=== PATIENT | female | born 1930 | race African-American/Black ===

== ENCOUNTER 2018-10-11 10:19 | Day surgery (SDC) | payer OTHER ==
[2018-10-11] VITALS (7 sets, daily range): BP systolic 165–185; BP diastolic 76–84
[~2018-10-11] VITALS: Ht 154.9 cm; Wt 77.1 kg
[~2018-10-11 10:19] MED LIST: BENAZEPRIL HCL40 MG ORAL; MEVACOR40 MG PO; NORMODYNE100 MG ORAL; VITAMIN D32000 UNI2 PO
[2018-10-11] MEDS: Phenylephrine 2.5% Op 2ml Soln LEFT EYE SCH ×3 (10:59→11:29)
[2018-10-11] MEDS: Cyclopentolate 1% Opth Sol 2ml LEFT EYE SCH ×3 (10:59→11:29)
--- NOTE | 2018-10-11 11:07 | NUR ---
IV WAS INSERTED BY GENARO ADHIKARI R.N. AT 1100 AM
[2018-10-11] MEDS ORDERED: CALCIUM500 M3 PO (11:23)
[2018-10-11] MEDS ORDERED: Lidocaine 2% MPF 5ml Vial INJ ONE (11:52)
[2018-10-11] MEDS ORDERED: EPINEPHrine 1mg/1ml Amp ONE (11:52)
[2018-10-11] MEDS ORDERED: Maxitrol Opth Oint 3.5gm ONE (11:52)
[2018-10-11] MEDS ORDERED: Tetracaine 0.5% Opth 4ml Soln ONE ×2 (11:53→13:40)
[2018-10-11] MEDS ORDERED: BSS 500ml btl ONE (11:53)
[2018-10-11] MEDS ORDERED: Povidone-Iodine 5% opth solution ONE (11:53)
[2018-10-11] MEDS ORDERED: BSS 15ml BTL ONE (11:53)
[2018-10-11] MEDS ORDERED: Bupivacaine 0.75% 30ml vial INJ ONE (11:54)
[2018-10-11] MEDS ORDERED: Sodium Hyaluronate 10 mg/ml 0.85ml ONE (11:54)
[2018-10-11] MEDS ORDERED: Kenalog-40 1ml Vial ONE (11:55)
[2018-10-11] MEDS ORDERED: Pred Forte 1% Opth Susp 1ml ONE (11:55)
[2018-10-11] MEDS ORDERED: Dexamethasone 4mg/ml vial ONE (11:55)
--- NOTE | 2018-10-11 13:16 | Anethesia Preoperative Eval ---
Anesthesia Pre-op PMH/ROS General Date of Evaluation: Oct 11, 2018 Time of Evaluation: 13:14 Anesthesiologist: Jennifer Bazzi CRNA ASA Score: ASA 3 Mallampati Score Class I : Soft palate, uvula, fauces, pillars visible Class II: Soft palate, uvula, fauces visible Class III: Soft palate, base of uvula visible Class IV: Only hard plate visible Mallampati Classification: Class II Surgeon: Clive Diagnosis: VItreous hemorrhage Surgical Procedure: Par plana vitrectomy, endolaser, LEFT eye, possible gas injection Anesthesia History: none Family History: no anesthesia problems Allergies: Coded Allergies: No Known Allergies (Verified Allergy, Mild, 11/09/09) Medications: see eMAR Patient NPO?: Yes NPO Date: Oct 11, 2018 NPO Time: 00:00 Past Medical History Cardiovascular: Reports: HTN, other - Hypercholesterolemia; Denies: CAD, MA, valve dz, arrhythmia Pulmonary: Denies: asthma, COPD, CHINO, other Gastrointestinal/Genitourinary: Reports: GERD, other - colon CA; Denies: CRI, ESRD Neurologic/Psychiatric: Denies: dementia, CVA, depression/anxiety, TIA, other Endocrine: Denies: DM, hypothyroidism, steroids, other HEENT: Reports: cataract (L), cataract (R); Denies: glaucoma, ENTERPRISE (L), ENTERPRISE (R), other Hematology/Immune: Denies: anemia, DVT, bleeding disorder, other Musculoskeletal/Integumentary: Reports: OA; Denies: RA, DJD, DDD, edema, other PMH Narrative: as above PSxH Narrative: rt eye cataract, cholecystectomt, hemicolectomy, hysterectomy Anesthesia Pre-op Phys. Exam Physician Exam Last Vital Signs Date Time Temp Pulse Resp B/P (MAP) Pulse Ox O2 Delivery O2 Flow Rate FiO2 10/11/18 11:23 Room Air 10/11/18 11:08 98.1 76 18 175/77 100 Constitutional: NAD Neurologic: CN 2-12 intact Cardiovascular: RRR Respiratory: CTA Gastrointestinal: S/NT/ND Airway Exam Mallampati Score: Class II MO: full Neck: no issues TMD: > 3 FB ROM: full Teeth: missing Dentures: upper Anesthesia Pre-op A/P Risk Assessment & Plan Assessment: ASA 3, ok to proceed Plan: MAC Status Change Before Surgery: No Pre-Antibiotics Given Within 1 Hr of Incision: No Jennifer Bazzi CRNA Oct 11, 2018 13:16
[2018-10-11] MEDS ORDERED: Propofol 200mg/20ml IV ONE (13:22)
[2018-10-11] MEDS ORDERED: DiphenhydrAMINE 50mg/ml Inj ONE (13:22)
[2018-10-11] MEDS ORDERED: Maxitrol Opth Susp 5ml ONE (13:26)
[2018-10-11] MEDS ORDERED: Goniotaire 2.5% Opth Soln - 15ml ONE (13:39)
[2018-10-11] MEDS ORDERED: fentaNYL 100 mcg/2 mL IV ONE (13:55)
[2018-10-11] MEDS ORDERED: Midazolam 2mg/2ml Inj ONE (13:55)
[2018-10-11] MEDS ORDERED: Akten 3.5% 1ml Btl ONE (13:57)
[2018-10-11] MEDS ORDERED: Lidocaine 1% MPF 10mg/ml 5ml ONE (14:00)
[2018-10-11] MEDS ORDERED: Sterile Water Irrig 1000ml IRRIG ONE (14:00)
[2018-10-11] MEDS ORDERED: NS Irrig 1000ml ONE (14:00)
[2018-10-11] MEDS ORDERED: LR 1000ml ONE (14:00)
[2018-10-11] MEDS ORDERED: Esmolol 100mg/10ml Inj ONE (14:00)
--- NOTE | 2018-10-11 14:41 | Pre-Procedure Note/Attestation ---
Pre-Procedure Note/Attestation Complete Prior to Procedure Planned Procedure: left Procedure Narrative: VH OS Indications for Procedure Pre-Operative Diagnosis: VH OS Attestation I attest that I discussed the nature of the procedure; its benefits; risks and complications; and alternatives (and the risks and benefits of such alternatives ), prior to the procedure, with the patient (or the patient's legal associate financial representative). I attest that, if there was a reasonable possibility of needing a blood transfusion, the patient (or the patient's legal associate financial representative) was given the [facility] standardized written summary, pursuant to the [place] Blood Safety Act ([place] Health and Safety Code # 1645, as amended). I attest that I re-evaluated the patient just prior to the surgery and that there has been no change in the patient's H&P, except as documented below: Bridger Duffy M.D. Oct 11, 2018 14:41
--- NOTE | 2018-10-11 14:43 | Operative Note - PDOC ---
Operative Note Operative Note Date of Operation/Procedure: Oct 11, 2018 Pre-op Diagnosis: VH OS Procedure: PPV/EL OS Post-op Diagnosis: VH, macroaneurysm left eye Post-op Diagnosis: same as pre-op plus Operative Findings: consistent w/pre-op dx studies Surgeon: Bridger Duffy Anesthesia: local, MAC Specimen: none Complications: none Condition: stable Estimated Blood Loss: none Drains: none Implant(s) used?: No Indications for Procedure blurry vision Description of Procedure PPV, EL OS Bridger Duffy M.D. Oct 11, 2018 14:43
--- NOTE | 2018-10-11 14:51 | Immediate Post-Op Evaluation ---
Immediate Post-Op Evalulation Immediate Post-Op Evalulation Procedure: LEFT eye pars plana vitrectomy endolaser Date of Evaluation: Oct 11, 2018 Time of Evaluation: 14:39 IV Fluids: LR 300 ml Blood Pressure Systolic: 185 Blood Pressure Diastolic: 84 Pulse Rate: 87 Respiratory Rate: 12 O2 Sat by Pulse Oximetry: 99 Temperature (Fahrenheit): 97.4 Pain Score (1-10): 0 Nausea: No Vomiting: No Complications none Patient Status: awake, reacts, patent Hydration Status: adequate Given Within 1 Hr of Incision: Jennifer Hardin CRNA Oct 11, 2018 14:51
--- NOTE | 2018-10-11 14:52 | 48 Hour Post Anesthesia Eval ---
Post Anesthesia Evaluation Procedure: LEFT eye pars plana vitrectomy endolaser Date of Evaluation: Oct 11, 2018 Time of Evaluation: 14:51 Blood Pressure Systolic: 177 0: 76 Pulse Rate: 71 Respiratory Rate: 20 Temperature (Fahrenheit): 97.4 O2 Sat by Pulse Oximetry: 100 Airway: patent Nausea: No Vomiting: No Pain Intensity: 0 Hydration Status: adequate Cardiopulmonary Status: none Mental Status/LOC: patient returned to baseline Follow-up Care/Observations: per optho Post-Anesthesia Complications: none Follow-up care needed: ready to discharge Jennifer Bazzi CRNA Oct 11, 2018 14:52
--- NOTE | 2018-10-12 02:00 | Operative Note - Dictated ---
DATE OF OPERATION: 10/11/2018 PREOPERATIVE DIAGNOSIS: Vitreous hemorrhage, left eye. 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 SURGERY: Pars plana vitrectomy and endolaser, left eye. SURGEON: Bridger Duffy M.D. ANESTHESIA: MAC with local sub-Tenon block. IMPLANTS: None. SPECIMEN: None. COMPLICATIONS: None. ESTIMATED BLOOD LOSS: Less than 5 mL. PROCEDURE IN DETAIL: The patient was identified in the preoperative area. Informed consent was previously obtained including, but not limited to pain, bleeding, infection, ablation, need for further surgery, injury to the eye, and loss of eye. The patient agreed to the plan. The patient was then taken to the OR, laid in supine position. At this point, a time-out was called including the patient's name, medical record number, date of , lateral ID, and procedure. The marked eye was confirmed. Shield was placed over the nonoperative eye. The patient was then prepped and draped in usual sterile fashion for performing procedure for the left eye. Sub-Tenon block was then performed with lidocaine and Marcaine. Three-plugged 23-gauge vitrectomy was then initiated with an infusion port inferotemporally. Infusion was checked with adequate position and maintained throughout the entire procedure. Instrumentation ports were then placed supratemporally and supranasally. Core vitrectomy was performed with light pipe and vitrector. There was a dense vitreous hemorrhage, which was evacuated. Vitreous was then shaved in a vitreous base. 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 A scleral depression was performed. There were no fold or tears to be found. Endolaser was then applied at 200 millivolts power around the areas of pigmentary change inferiorly and also circumscribing the area of a macular aneurysm as to prevent subretinal fluid from going into the macula. Trocars were removed. Subsequent, sclerotomies were found to be watertight. Intraoperative pressure was ensured to be physiologic. Subconjunctival antibiotics and steroids were placed followed by Maxitrol ointment followed by patch and shield. The patient tolerated the procedure well and there were no complications. Bridger Duffy M.D. DR: CAM JOB#: [id number] CC:
== END 2018-10-11 16:10 | disposition home or self-care (01) ==
LOC: SUR 10:19
DX: H43.12 Vitreous hemorrhage, left eye (principal); I72.8 Aneurysm of other specified arteries; C90.00 Multiple myeloma not having achieved remission; I10 Essential (primary) hypertension; E78.00 Pure hypercholesterolemia, unspecified; K21.9 Gastro-esophageal reflux disease without esophagitis; M19.90 Unspecified osteoarthritis, unspecified site; Z85.038 Personal history of other malignant neoplasm of large intestine; Z90.49 Acquired absence of other specified parts of digestive tract; Z90.710 Acquired absence of both cervix and uterus
CPT/HCPCS: 67039; 93005; J0360; J0690; J1100; J2704; J3010; J3490; 94003; 94150; J2250